=== PATIENT | male | born 1990 | race African-American/Black ===

== ENCOUNTER 2017-01-07 10:20 | Emergency (ER) | payer SELFPAY ==
[2017-01-07 10:24] VITALS: BP 143/73; BMI 28.3
--- NOTE | 2017-01-07 10:59 | DR.GENAD ---
HPI - PCP Primary Care Physician: none - Complaint/Symptoms Chief Complaint:: " Lymph nodes are swollen and ear is hurting on my left side for three days" - Source History Provided: Patient - Mode of Arrival Mode of Arrival: Ambulatory - Timing Onset of Chief Complaint: 01/05/17 PMH - PMH Past Medical History: No Past Medical History: Arthritis, Migraines Past Surgical History: No - Family History History of Family Medical Conditions: Yes Family Medical History: Diabetes Mellitus, Hypertension - Social History Does patient currently use any type of tobacco product: Yes Have you used tobacco products in the last 12 months: Yes Type of Tobacco Use: Cigarettes How many years tobacco product used: 10 Does any household member use tobacco: No Alcohol Use: None Do you use any recreational Drugs:: No Lives With: Family Lives Where: Home - infectious screening In the last 2 months have you had wt loss of >10#?: NO Have you had fever, night sweats or hemotysis?: No Have you traveled outside the country in the last 6 months?: No Isolation: Standard ROS - Review of Systems Constitutional: No Symptoms Reported Eyes: No Symptoms Reported ENTM: No Symptoms Reported Respiratoy: No Symptoms Reported Cardiovascular: No Symptoms Reported Gastrointestinal/Abdominal: No Symptoms Reported Genitourinary: No Symptoms Reported Neurological: No Symptoms Reported Musculoskeletal: No Symptoms Reported Integumentary: No Symptoms Reported Hematologic/Lymphatic: No Symptoms Reported Endocrine: No Symptoms Reported Psychiatric: No Symptoms Reported All Other Systems: Reviewed and Negative PE - Vital Signs Vitals: Temperature 98.0 F Pulse Rate 65 Respiratory Rate 18 Blood Pressure 143/73 O2 Sat by Pulse Oximetry 99 - General Limitations: No Limitations General Appearance: Alert, In No Apparent Distress - ENT ENT Exam: Normal Exam, Normal Oropharynx External Ear Exam: Normal External Inspection, Pain with Movement TM/Canal Exam: Left Erythema (TM yellow), Bilateral Normal Nose Exam: Normal Nose Exam Mouth Exam: Normal Inspection Throat Exam: Normal Inspection - Neck Neck Exam: Normal Inspection - Chest Chest Inspection: Normal Inspection - Respiratory Respiratory Exam: Normal Lung Sounds Bilat Respiratory Exam: Bilateral Clear to Auscultation - Cardiovascular Cardiovascular Exam: Regular Rate, Normal Rhythm - Abdominal Exam Abdominal Exam: Normal Inspection Abdominal Tenderness: negative: RUQ, RLQ, LUQ, LLQ, Epigastrium, Suprapubic, Diffuse, Mild, Moderate, Severe, Other - Extremities Extremities Exam: Normal Inspection - Back Back Exam: Normal Inspection - Neurologic Neurological Exam: Alert, Oriented X3 - Psychiatric Psychiatric Exam: Normal Affect - Skin Skin Exam: Warm, Dry, Intact Course - Reevaluation 1st: Unchanged ROR - Labs Reviewed Laboratory Results Reviewed?: Yes (strep negative) Laboratory: Streptococcus Screen Negative (NEGATIVE) 01/07/17 11:13 - Diagnosis Discharge Problem: Left otitis media Qualifiers: Otitis media type: suppurative Chronicity: acute Recurrence: not specified as recurrent Spontaneous tympanic membrane rupture: without spontaneous rupture Qualified Code(s): H66.002 - Acute suppurative otitis media without spontaneous rupture of ear drum, left ear - Discharge Plan Condition: Stable - Follow ups/Referrals Follow ups/Referrals: NFD,None [Primary Care Provider] - 3 days - Instructions
== END 2017-01-07 11:46 | disposition home or self-care (01) ==
LOC: ER 10:31
DX: H66.002 Acute suppurative otitis media without spontaneous rupture of ear drum, left ear (principal)
CPT/HCPCS: 87070; 87880; 99282

== ENCOUNTER 2017-07-02 12:38 | Emergency (ER) | payer SELFPAY ==
[2017-07-02 12:42] VITALS: BP 122/75; BMI 23.6
[2017-07-02] MEDS ORDERED: NS 1000 ML 1,000 ML IV ONE (13:25)
[2017-07-02] MEDS ORDERED: PHENERGAN INJ 25 MG IVP ONE (13:26)
--- NOTE | 2017-07-02 13:27 | DR.GENAD ---
HPI - PCP Primary Care Physician: NFD - Complaint/Symptoms Chief Complaint Doctors Comments: 27 y/o male complainig of nausea and vomitting + diarrhea. These symptoms have been ongoing x days. He describes BM as loose and he has been going several/numerous x per day. He states frequency is lessening since yesterday. On average, he has 4-5 emesis per day. He has associated abdominal cramps. He denies recent travel outside of this area or of consuming poorly prepare food items. He states however, multiple members of his household have or have had similar symptoms. He has a headach but no fever. Chief Complaint:: PATIENT C/O N/V AND DIARRHEA WITH HEADACHES X4 DAYS. PATIENT STATES "MY MOM AND FAMILY HAVE THE SAME THING." DENIES EATING ANY DIFFERENT FOOD LATELY. DENIES ABD PAIN Self Treatment fo Chief Complaint: OTC NAUSEA RELIEF MEDS - Nurses notes reviewed Nurses Notes Review: Yes - Source History Provided: Patient - Mode of Arrival Mode of Arrival: Ambulatory - Timing Onset of Chief Complaint: 06/29/17 - Duration How lon Duration: Days PMH - PMH Past Medical History: No Past Medical History: Arthritis, Migraines Past Surgical History: No - Family History History of Family Medical Conditions: Yes Family Medical History: Diabetes Mellitus, Hypertension - Social History Does patient currently use any type of tobacco product: Yes Have you used tobacco products in the last 12 months: Yes Type of Tobacco Use: Cigarettes Does any household member use tobacco: No Alcohol Use: None Do you use any recreational Drugs:: No Lives With: Family Lives Where: Home - infectious screening In the last 2 months have you had wt loss of >10#?: NO Have you had fever, night sweats or hemotysis?: No Have you traveled outside the country in the last 6 months?: No Isolation: Standard ROS - Review of Systems Constitutional: No Symptoms Reported Eyes: No Symptoms Reported ENTM: No Symptoms Reported Respiratoy: No Symptoms Reported Cardiovascular: No Symptoms Reported Gastrointestinal/Abdominal: Abdominal Pain, Diarrhea, Nausea, Vomiting Genitourinary: No Symptoms Reported Neurological: No Symptoms Reported Musculoskeletal: No Symptoms Reported Integumentary: No Symptoms Reported Hematologic/Lymphatic: No Symptoms Reported Endocrine: No Symptoms Reported Psychiatric: No Symptoms Reported All Other Systems: Reviewed and Negative PE - Vital Signs Vitals: Temperature 97.8 F Pulse Rate 83 Respiratory Rate 18 Blood Pressure 122/75 O2 Sat by Pulse Oximetry 97 - General Limitations: No Limitations General Appearance: Alert, In No Apparent Distress - Head Head Exam: Normal Inspection - Eyes Eye exam: Normal Appearance, PERRL, EOMI - ENT ENT Exam: Normal Exam - Neck Neck Exam: Normal Inspection, Full ROM, Trachea Midline - Chest Chest Inspection: Normal Inspection, Symmetric Chest Wall Rise - Respiratory Respiratory Exam: Normal Lung Sounds Bilat - Cardiovascular Cardiovascular Exam: Regular Rate, Normal Rhythm - Abdominal Exam Abdominal Exam: Normal Inspection, Normal Bowel Sounds, Soft - Extremities Extremities Exam: Normal Inspection, Full ROM - Back Back Exam: Normal Inspection - Neurologic Neurological Exam: Alert, Oriented X3, CN II-XII Intact - Psychiatric Psychiatric Exam: Normal Affect, Normal Mood - Skin Skin Exam: Warm, Dry, Intact, Normal Color Course - Reevaluation 1st: Improved - Education/Counseling Education/Counseling: Patient Educated On: Treatment, Diagnosis, Prognosis, Needs for Follow Up ROR - Labs Reviewed Result Diagrams: 07/02/17 13:38 07/02/17 13:38 Laboratory: WBC 5.1 X10^3/uL (3.6-10.0) 07/02/17 13:38 RBC 5.04 X10^6/uL (4.7-6.0) 07/02/17 13:38 Hgb 14.9 g/dL (13.5-18.0) 07/02/17 13:38 Hct 44.7 % (42.0-54.0) 07/02/17 13:38 MCV 88.8 fL (80.0-100.0) 07/02/17 13:38 MCH 29.6 pg (27.0-34.0) 07/02/17 13:38 MCHC 33.4 g/dL (33.0-35.0) 07/02/17 13:38 RDW 12.7 % (11.6-16.5) 07/02/17 13:38 Plt Count 262 X10^3/uL (150.0-450.0) 07/02/17 13:38 MPV 7.4 fL (7.4-11.0) 07/02/17 13:38 Neut % 51.5 % (42.0-75.0) 07/02/17 13:38 Lymph % 35.7 % (21.0-51.0) 07/02/17 13:38 [place] % 9.7 % (0.0-13.0) 07/02/17 13:38 Eos % 2.5 % (0.9-2.9) 07/02/17 13:38 Baso % 0.6 % (0.2-1.0) 07/02/17 13:38 Neut # 2.6 x10^3/uL (2.2-4.8) 07/02/17 13:38 Lymph # 1.8 X10^3/uL (1.3-2.9) 07/02/17 13:38 [place] # 0.5 x10^3/uL (0.3-0.8) 07/02/17 13:38 Eos # 0.1 x10^3/uL (0.0-0.2) 07/02/17 13:38 Baso # 0.0 X10^3/uL (0.0-0.1) 07/02/17 13:38 Absolute Nucleated RBC 0.0 /100WBC 07/02/17 13:38 Sodium 139 mmol/L (136-145) 07/02/17 13:38 Corrected Sodium TNP 07/02/17 13:38 Potassium 3.9 mmol/L (3.5-5.1) 07/02/17 13:38 Chloride 103 mmol/L (98-107) 07/02/17 13:38 Carbon Dioxide 31.0 mmol/L (21-32) 07/02/17 13:38 BUN 9 mg/dL (7-18) 07/02/17 13:38 Creatinine 0.75 mg/dL (0.70-1.30) 07/02/17 13:38 Est GFR (MDRD) Af Amer > 60 (>60) 07/02/17 13:38 Est GFR (MDRD) Non-Af > 60 (>60) 07/02/17 13:38 Glucose 87 mg/dL (65-99) 07/02/17 13:38 Calcium 8.9 mg/dL (8.5-10.1) 07/02/17 13:38 Corrected Calcium TNP 07/02/17 13:38 Total Bilirubin 0.40 mg/dL (0.2-1.0) 07/02/17 13:38 AST 23 Units/L (15-37) 07/02/17 13:38 ALT 26 Units/L (12-78) 07/02/17 13:38 Alkaline Phosphatase 48 Units/L (46-116) 07/02/17 13:38 Total Protein 7.4 g/dL (6.4-8.2) 07/02/17 13:38 Albumin 4.0 g/dL (3.4-5.0) 07/02/17 13:38 Globulin 3.4 g/dL (2.5-4.5) 07/02/17 13:38 Albumin/Globulin Ratio 1.2 Ratio (1.1-2.1) 07/02/17 13:38 - Diagnosis Discharge Problem: Gastroenteritis - Discharge Plan Disposition: HOME, SELF-CARE Condition: Stable - Follow ups/Referrals Follow ups/Referrals: NFD,None [Primary Care Provider] - 3 days - Instructions
[2017-07-02] MEDS ORDERED: NS 1000 ML 1,000 ML ONE (13:30)
[2017-07-02] MEDS ORDERED: PHENERGAN INJ 25 MG ONE (13:30)
[2017-07-02 13:58] LABS: BASOPHILS % (AUTO) 0.6 % (0.2-1.0); EOSINOPHILS # (AUTO) 0.1 x10^3/uL (0.0-0.2); EOSINOPHILS % (AUTO) 2.5 % (0.9-2.9); HEMATOCRIT 44.7 % (42.0-54.0); HEMOGLOBIN 14.9 g/dL (13.5-18.0); LYMPHOCYTES # (AUTO) 1.8 X10^3/uL (1.3-2.9); LYMPHOCYTES % (AUTO) 35.7 % (21.0-51.0); MEAN CORPUSCULAR HEMOGLOBIN 29.6 pg (27.0-34.0); MEAN CORPUSCULAR HGB CONC 33.4 g/dL (33.0-35.0); MEAN CORPUSCULAR VOLUME 88.8 fL (80.0-100.0); MEAN PLATELET VOLUME 7.4 fL (7.4-11.0); MONOCYTES # (AUTO) 0.5 x10^3/uL (0.3-0.8); MONOCYTES % (AUTO) 9.7 % (0.0-13.0); NEUTROPHILS # (AUTO) 2.6 x10^3/uL (2.2-4.8); NEUTROPHILS % (AUTO) 51.5 % (42.0-75.0); PLATELET COUNT 262 X10^3/uL (150.0-450.0); RED BLOOD COUNT 5.04 X10^6/uL (4.7-6.0); RED CELL DISTRIBUTION WIDTH 12.7 % (11.6-16.5); WHITE BLOOD COUNT 5.1 X10^3/uL (3.6-10.0)
--- NOTE | 2017-07-02 14:11 | RAD ---
Examination: Abdomen with PA chest History: Nausea and vomiting Findings: PA chest demonstrates normal heart size with clear lungs and pleural spaces. In the abdomen , supine and upright views demonstrate a solitary segment of slightly dilated small bowel in the left mid abdomen. There is no evidence of mass formation or urinary calcification. No free air is identif ied. Impression: No acute chest abnormality noted. Minimal left-sided intestinal ileus. No obstruction or perforation. Reported By:
[2017-07-02 14:32] LABS: ALANINE AMINOTRANSFERASE 26 Units/L (12-78); ALKALINE PHOSPHATASE 48 Units/L (46-116); ASPARTATE AMINO TRANSFERASE 23 Units/L (15-37); BLOOD UREA NITROGEN 9 mg/dL (7-18); CALCIUM 8.9 mg/dL (8.5-10.1); CHLORIDE 103 mmol/L (98-107); CREATININE 0.75 mg/dL (0.70-1.30); SODIUM 139 mmol/L (136-145); TOTAL PROTEIN 7.4 g/dL (6.4-8.2); eGFR BLACK RACES > 60 (>60); eGFR NON BLACK RACES > 60 (>60)
== END 2017-07-02 15:26 | disposition home or self-care (01) ==
LOC: ER 13:03
DX: K52.89 Other specified noninfective gastroenteritis and colitis (principal)
CPT/HCPCS: 36415; 74022; 80053; 85025; 96365; 96374; 99283; A4222; J2550

== ENCOUNTER 2017-07-28 13:11 | Emergency (ER) | payer SELFPAY ==
[2017-07-28 13:15] VITALS: BP 146/77; BMI 23.9
--- NOTE | 2017-07-28 15:10 | DR.GENAD ---
HPI - PCP Primary Care Physician: NFD - Complaint/Symptoms Chief Complaint:: PATIENT STATED THAT ON HIS RT. FOOT HAS BEEN GIVEN HIM MORE TROUBLE WITH BLISTERS AND BLEEDING FROM WALKING TO 2 DIFFERENT JOBS. HE STATED THAT THE LEFT ONE HAS BLISTERS BUT THEY HAVE NOT BUSTED OPEN. - Source History Provided: Patient - Mode of Arrival Mode of Arrival: Ambulatory - Timing Onset of Chief Complaint: 07/08/17 PMH - PMH Past Medical History: Yes Past Medical History: Arthritis, Migraines Past Surgical History: No - Family History History of Family Medical Conditions: Yes Family Medical History: Diabetes Mellitus, Hypertension - Social History Does patient currently use any type of tobacco product: Yes Have you used tobacco products in the last 12 months: Yes Type of Tobacco Use: Cigarettes Does any household member use tobacco: No Alcohol Use: None Do you use any recreational Drugs:: No Lives With: Family Lives Where: Home - infectious screening In the last 2 months have you had wt loss of >10#?: NO Have you had fever, night sweats or hemotysis?: No Have you traveled outside the country in the last 6 months?: No Isolation: Standard PE - Vital Signs Vitals: Temperature 98.3 F Pulse Rate 79 Respiratory Rate 20 Blood Pressure 146/77 O2 Sat by Pulse Oximetry 98 - Discharge Plan Condition: Stable Prescriptions: Cephalexin [KEFLEX CAP 500 MG *] 500 mg PO TID #30 cap Ibuprofen [MOTRIN TAB 600 MG *] 600 mg PO TID PRN #30 tab PRN Reason: Pain/Inflammation - Follow ups/Referrals Follow ups/Referrals: NFD,None [Primary Care Provider] - 3 days - Instructions Instructions: Plantar Fasciitis With Rehab-SportsMed Additional Instructions: RETURN TO ED IF WORSE. REFER TO PODIATIST OF YOUR CHOICE.
--- NOTE | 2017-07-28 15:51 | RAD ---
Examination: Left foot, three views History: Pain Findings: No definite fracture, dislocation, osteolytic process or arthropathy. The visualized soft t issues are normal. Impression: Within normal limits. Reported By:
--- NOTE | 2017-07-28 15:52 | RAD ---
Examination: Right foot, three views History: Walking pain Findings: There is no evidence for fracture, bone destruction, soft tissue calcification or arthritis . The visualized soft tissues are unremarkable. Impression: No abnormality identified. Reported By:
== END 2017-07-28 16:25 | disposition home or self-care (01) ==
LOC: ER 13:24
DX: M72.2 Plantar fascial fibromatosis (principal)
CPT/HCPCS: 73630; 99282

== ENCOUNTER 2017-11-26 09:03 | Emergency (ER) | payer SELFPAY ==
[2017-11-26 09:08] VITALS: BP 119/62; BMI 24.3
--- NOTE | 2017-11-26 09:36 | DR.EXTPAIN ---
HPI - Time seen Time seen: 09:35 - PCP Primary Care Physician: cullen - HPI Comment HPI Comment: PAIN GETTING WORSE. NOW WITH NAUSEA. NO FEVER.NO V/D. DENIES MELENA. PAIN SO SEVERE TODAY, HE CAME TO ED. - Complaint/Symptoms Chief Complaint Doctor Comments: EPIGASTRIC PAIN TIMES 4 WEEKS. Chief Complaint:: pt stated for 4 weeks he has had gas trapped in his chest. he stated he needed to get it seen about Self Treatment fo Chief Complaint: took anacid - Nurses notes reviewed Nurses Notes Review: Yes - Source History Provided: Patient - Mode of arrival Mode of Arrival: Ambulatory - Timing Onset of Chief Complaint: 10/29/17 - Context History of: None - Associated signs and symptoms Associated Signs and Symptoms: Abdominal Pain, Nausea PMH - PMH Past Medical History: No Past Medical History: Arthritis, Migraines Past Surgical History: No - Family History History of Family Medical Conditions: No Family Medical History: Diabetes Mellitus, Hypertension - Social History Does patient currently use any type of tobacco product: Yes Have you used tobacco products in the last 12 months: Yes Type of Tobacco Use: Cigarettes How many years tobacco product used: 10 Does any household member use tobacco: Yes Alcohol Use: None Do you use any recreational Drugs:: No Lives With: Family Lives Where: Home - infectious screening In the last 2 months have you had wt loss of >10#?: NO Have you had fever, night sweats or hemotysis?: No Have you traveled outside the country in the last 6 months?: No Isolation: Standard ROS - Review of Systems Constitutional: No Symptoms Reported Eyes: No Symptoms Reported ENTM: No Symptoms Reported Respiratoy: No Symptoms Reported Cardiovascular: No Symptoms Reported Gastrointestinal/Abdominal: Abdominal Pain, Nausea Neurological: No Symptoms Reported Musculoskeletal: No Symptoms Reported Integumentary: No Symptoms Reported Hematologic/Lymphatic: No Symptoms Reported Endocrine: No Symptoms Reported All Other Systems: Reviewed and Negative PE - Vital Signs Vitals: Temperature 98.9 F Pulse Rate 78 Respiratory Rate 16 Blood Pressure 119/62 O2 Sat by Pulse Oximetry 100 - General Limitations: No Limitations General Appearance: Alert - Head Head Exam: Normal Inspection - Eyes Eye exam: Normal Appearance - ENT ENT Exam: Normal External Ear Exam - Neck Neck Exam: Trachea Midline - Chest Chest Inspection: Symmetric Chest Wall Rise - Respiratory Respiratory Exam: Normal Lung Sounds Bilat Respiratory Exam: Bilateral Clear to Auscultation - Cardiovascular Cardiovascular Exam: Regular Rate, Normal Rhythm, Normal Heart Sounds - Abdominal Exam Abdominal Exam: Normal Bowel Sounds, Soft, Tenderness Abdominal Tenderness: Epigastrium - Extremities Extremities Exam: Normal Inspection - Lower Extremities Neurovascular/Tendon Exam: Normal Capillary Refill Gait Exam: Observed and Normal - Back Back Exam: Normal Inspection - Neurological Neurological Exam: Alert, Oriented X3 - Psychiatric Psychiatric Exam: Normal Affect, Normal Mood - Skin Skin Exam: Normal Color MDM - Differential Diagnosis Differential Diagnosis: Other (EPIGASTRIC PAIN, BOWEL OBST, PUD, HIATAL HERNIA) Course - Treatment Treatment: SEE ORDERS. - Education/Counseling Education/Counseling: Patient, Education Educated On: Diagnosis, Needs for Follow Up ROR - Labs Reviewed Laboratory Results Reviewed?: Yes Result Diagrams: 11/26/17 09:45 11/26/17 09:45 Laboratory: WBC 8.3 X10^3/uL (3.6-10.0) 11/26/17 09:45 RBC 4.67 X10^6/uL (4.7-6.0) L 11/26/17 09:45 Hgb 13.9 g/dL (13.5-18.0) 11/26/17 09:45 Hct 41.1 % (42.0-54.0) L 11/26/17 09:45 MCV 88.0 fL (80.0-100.0) 11/26/17 09:45 MCH 29.7 pg (27.0-34.0) 11/26/17 09:45 MCHC 33.7 g/dL (33.0-35.0) 11/26/17 09:45 RDW 12.4 % (11.6-16.5) 11/26/17 09:45 Plt Count 239 X10^3/uL (150.0-450.0) 11/26/17 09:45 MPV 6.9 fL (7.4-11.0) L 11/26/17 09:45 Neut % (Auto) 69.4 % (42.0-75.0) 11/26/17 09:45 Lymph % (Auto) 16.7 % (21.0-51.0) L 11/26/17 09:45 [place] % (Auto) 11.6 % (0.0-13.0) 11/26/17 09:45 Eos % (Auto) 1.5 % (0.9-2.9) 11/26/17 09:45 Baso % (Auto) 0.8 % (0.2-1.0) 11/26/17 09:45 Neut # (Auto) 5.7 x10^3/uL (2.2-4.8) H 11/26/17 09:45 Lymph # (Auto) 1.4 X10^3/uL (1.3-2.9) 11/26/17 09:45 [place] # (Auto) 1.0 x10^3/uL (0.3-0.8) H 11/26/17 09:45 Eos # (Auto) 0.1 x10^3/uL (0.0-0.2) 11/26/17 09:45 Baso # (Auto) 0.1 X10^3/uL (0.0-0.1) 11/26/17 09:45 Absolute Nucleated RBC 0.0 /100WBC 11/26/17 09:45 Sodium 139 mmol/L (136-145) 11/26/17 09:45 Corrected Sodium TNP 11/26/17 09:45 Potassium 4.2 mmol/L (3.5-5.1) 11/26/17 09:45 Chloride 104 mmol/L (98-107) 11/26/17 09:45 Carbon Dioxide 29.9 mmol/L (21-32) 11/26/17 09:45 BUN 8 mg/dL (7-18) 11/26/17 09:45 Creatinine 0.93 mg/dL (0.70-1.30) 11/26/17 09:45 Est GFR (MDRD) Af Amer > 60 (>60) 11/26/17 09:45 Est GFR (MDRD) Non-Af > 60 (>60) 11/26/17 09:45 Glucose 100 mg/dL (65-99) H 11/26/17 09:45 Calcium 8.5 mg/dL (8.5-10.1) 11/26/17 09:45 Corrected Calcium TNP 11/26/17 09:45 Total Bilirubin 0.40 mg/dL (0.2-1.0) 11/26/17 09:45 AST 20 Units/L (15-37) 11/26/17 09:45 ALT 23 Units/L (12-78) 11/26/17 09:45 Alkaline Phosphatase 51 Units/L (46-116) 11/26/17 09:45 Total Protein 7.1 g/dL (6.4-8.2) 11/26/17 09:45 Albumin 3.7 g/dL (3.4-5.0) 11/26/17 09:45 Globulin 3.4 g/dL (2.5-4.5) 11/26/17 09:45 Albumin/Globulin Ratio 1.1 Ratio (1.1-2.1) 11/26/17 09:45 Amylase 122 Units/L (25-115) H 11/26/17 09:45 Lipase 517 Units/L (73-393) H 11/26/17 09:45 Specimen Type Clean catch urine 11/26/17 10:12 Urine Color Yellow (YELLOW) 11/26/17 10:12 Urine Appearance Hazy (CLEAR) 11/26/17 10:12 Urine pH 7.0 (5.0 - 8.0) 11/26/17 10:12 Ur Specific [place] 1.005 (1.000-1.030) 11/26/17 10:12 Urine Protein Negative (NEGATIVE) 11/26/17 10:12 Urine Glucose (UA) Negative (NEGATIVE) 11/26/17 10:12 Urine Ketones Negative (NEGATIVE) 11/26/17 10:12 Urine Occult Blood Negative (NEGATIVE) 11/26/17 10:12 Urine Nitrite Negative (NEGATIVE) 11/26/17 10:12 Urine Bilirubin Negative (NEGATIVE) 11/26/17 10:12 Urine Urobilinogen Normal (NORMAL) 11/26/17 10:12 Ur Leukocyte Esterase Negative (NEGATIVE) 11/26/17 10:12 H. pylori IgG Antibody Positive (NEGATIVE) A 11/26/17 09:45 - XRAY XRAY Interpreted by: Radiologist XRAY Findings: SEE REPORT. - Diagnosis Discharge Problem: Helicobacter pylori ab+ Abdominal pain Qualifiers: Abdominal location: epigastric Qualified Code(s): R10.13 - Epigastric pain Acute pancreatitis Qualifiers: Pancreatitis type: unspecified pancreatitis type Acute pancreatitis complication: unspecified Qualified Code(s): K85.90 - Acute pancreatitis without necrosis or infection, unspecified - Discharge Plan Condition: Stable Prescriptions: Ketorolac Tromethamine [Toradol Tab] 10 mg PO Q8H PRN #12 tab PRN Reason: Pain Lansoprazole/Amoxiciln/Clarith [PrevPac 14-day pack] 1 dose PO BID #1 pkg - Follow ups/Referrals Follow ups/Referrals: NFD,None [Primary Care Provider] - 3 days - Instructions Instructions: Abdominal Pain, Adult, [id number], Helicobacter Pylori Antibodies Test Additional Instructions: RETURN TO ED IF WORSE.
[2017-11-26 09:58] LABS: BASOPHILS # (AUTO) 0.1 X10^3/uL (0.0-0.1); BASOPHILS % (AUTO) 0.8 % (0.2-1.0); EOSINOPHILS # (AUTO) 0.1 x10^3/uL (0.0-0.2); EOSINOPHILS % (AUTO) 1.5 % (0.9-2.9); HEMATOCRIT 41.1 % (42.0-54.0); HEMOGLOBIN 13.9 g/dL (13.5-18.0); LYMPHOCYTES # (AUTO) 1.4 X10^3/uL (1.3-2.9); LYMPHOCYTES % (AUTO) 16.7 % (21.0-51.0); MEAN CORPUSCULAR HEMOGLOBIN 29.7 pg (27.0-34.0); MEAN CORPUSCULAR HGB CONC 33.7 g/dL (33.0-35.0); MEAN PLATELET VOLUME 6.9 fL (7.4-11.0); MONOCYTES % (AUTO) 11.6 % (0.0-13.0); NEUTROPHILS # (AUTO) 5.7 x10^3/uL (2.2-4.8); NEUTROPHILS % (AUTO) 69.4 % (42.0-75.0); PLATELET COUNT 239 X10^3/uL (150.0-450.0); RED BLOOD COUNT 4.67 X10^6/uL (4.7-6.0); RED CELL DISTRIBUTION WIDTH 12.4 % (11.6-16.5); WHITE BLOOD COUNT 8.3 X10^3/uL (3.6-10.0)
[2017-11-26 10:10] LABS: ALANINE AMINOTRANSFERASE 23 Units/L (12-78); ALBUMIN 3.7 g/dL (3.4-5.0); ALKALINE PHOSPHATASE 51 Units/L (46-116); AMYLASE 122 Units/L (25-115); ASPARTATE AMINO TRANSFERASE 20 Units/L (15-37); BLOOD UREA NITROGEN 8 mg/dL (7-18); CALCIUM 8.5 mg/dL (8.5-10.1); CARBON DIOXIDE 29.9 mmol/L (21-32); CHLORIDE 104 mmol/L (98-107); CREATININE 0.93 mg/dL (0.70-1.30); LIPASE 517 Units/L (73-393); SODIUM 139 mmol/L (136-145); TOTAL PROTEIN 7.1 g/dL (6.4-8.2); eGFR BLACK RACES > 60 (>60); eGFR NON BLACK RACES > 60 (>60)
[2017-11-26 10:20] LABS: BILIRUBIN,URINE NEGATIVE (NEGATIVE); BLOOD/HEMOGLOBIN,URINE NEGATIVE (NEGATIVE); GLUCOSE, URINE NEGATIVE (NEGATIVE); KETONES,URINE NEGATIVE (NEGATIVE); LEUKOCYTE ESTERASE ,URINE NEGATIVE (NEGATIVE); NITRITES,URINE NEGATIVE (NEGATIVE); PROTEIN,URINE NEGATIVE (NEGATIVE); UROBILINOGEN,URINE NORMAL (NORMAL)
[2017-11-26 10:23] LABS: APPEARANCE,URINE HAZY (CLEAR); COLOR,URINE YELLOW (YELLOW)
--- NOTE | 2017-11-26 10:57 | RAD ---
HISTORY: Chest and abdominal pain. Acute abdominal series. Findings: The trachea is midline. The cardiac silhouette is unremarkable. The lungs are clear without focal i nfiltrate or effusion. The bony thorax is unremarkable. Flat plate and upright evaluation of the abdomen demonstrates a nonspecific and nonobstructive bowel gas pattern. No free peritoneal air is seen. No pathological soft tissue abdominal mass effect or foc al calcification can be observed. The bony structures are grossly intact. IMPRESSION: 1. No acute cardiopulmonary disease. 2. No evidence for acute abdominal pathology. 3. Moderate quantity of colonic stool observed. Reported By:
== END 2017-11-26 11:14 | disposition home or self-care (01) ==
LOC: ER 09:13
DX: R10.13 Epigastric pain (principal); K85.90 Acute pancreatitis without necrosis or infection, unspecified; B96.81 Helicobacter pylori [H. pylori] as the cause of diseases classified elsewhere
CPT/HCPCS: 36415; 74022; 80053; 81003; 82150; 83690; 85025; 86677; 99282

== ENCOUNTER 2017-12-02 13:14 | Emergency (ER) | payer SELFPAY ==
[2017-12-02 13:22] VITALS: BP 126/69; BMI 24.3
--- NOTE | 2017-12-02 15:23 | DR.CP ---
HPI - Time Seen Time seen: 15:10 - PCP Primary Care Physician: KHRIS - HPI Comment HPI Comment: HISTORY BELOW. PATIENT ALSO HAVING BACK PAIN MID AND LOWER BACK. NO DYSURIA. - Complaint Chief Complaint Doctor Comments: CHEST PAIN TIMES ONE MONTH. 11/26/2017 PATIENT WAS EVALUATED GOR EPIGASTRIC PAIN AT THIS FACILITY AND DIAGNOSE WITH PANCREASTITIS AND POSITIVE H PYLORI TEST. CT NON CONTRAST OF ABD/PELVIS DIS NOT REPORT ACUTE FINDINGS. NOW HE STARTED HAVING MID STERNAL PAIN RADIATING TO THE EPIGASTRIC AREA. NO FEVER. Chief Complaint:: MIDSTERNAL CHESTPAIN FOR APPROX 1 MONTH - Reviewed Nurses Notes Review: Yes - Source History Provided: Patient - Mode of Arrival Mode of Arrival: Ambulatory - Timing Onset of Chief Complaint: 11/02/17 Came on: Suddenly - Duration Duration: Constant Duration: Days - Location Chest Pain Radiation Location: Abdomen - Context Onset: At rest Cardiac Risk Factors: None PE Risk Factors: None History of: None Prehospital Care: None - Quality Quality: Sharp - Severity Severity: Moderate - Modifying Factors Worsens: Nothing Impoves: Nothing - Associated Signs and Symptoms Associated Signs and Symptoms: Other (CHEST PAIN) PMH - PMH Past Medical History: Yes Past Medical History: Angina Past Surgical History: No - Family History History of Family Medical Conditions: No Family Medical History: Diabetes Mellitus, Hypertension - Social History Does patient currently use any type of tobacco product: Yes Have you used tobacco products in the last 12 months: Yes Type of Tobacco Use: Cigarettes How many years tobacco product used: 10 Does any household member use tobacco: Yes Alcohol Use: None Do you use any recreational Drugs:: No Lives With: Family Lives Where: Home - infectious screening In the last 2 months have you had wt loss of >10#?: NO Have you had fever, night sweats or hemotysis?: No Have you traveled outside the country in the last 6 months?: No Isolation: Standard ROS - Review of Systems Constitutional: No Symptoms Reported Eyes: No Symptoms Reported ENTM: No Symptoms Reported Respiratoy: No Symptoms Reported Cardiovascular: Chest Pain Gastrointestinal/Abdominal: Abdominal Pain, Nausea Neurological: No Symptoms Reported Musculoskeletal: No Symptoms Reported Integumentary: No Symptoms Reported Hematologic/Lymphatic: No Symptoms Reported Endocrine: No Symptoms Reported All Other Systems: Reviewed and Negative PE - Vitals Vitals: Temperature 98.2 F Pulse Rate 60 Respiratory Rate 20 Blood Pressure 126/69 O2 Sat by Pulse Oximetry 98 - General Limitations: No Limitations General Appearance: Alert - Head Head Exam: Normal Inspection - Eyes Eye exam: Normal Appearance - ENT ENT Exam: Normal External Ear Exam - Chest Chest Inspection: Symmetric Chest Wall Rise - Respiratory Respiratory Exam: Normal Lung Sounds Bilat Respiratory Exam: Bilateral Clear to Auscultation - Cardiovascular Cardiovascular Exam: Regular Rate, Normal Rhythm, Normal Heart Sounds Pulse: Normal, Radial, Femoral Edema: Normal - Abdominal Exam Abdominal Exam: Normal Bowel Sounds, Soft, Tenderness - Extremities Extremities Exam: Normal Inspection - Back Back Exam: Normal Inspection - Neurologic Neurological Exam: Alert, Oriented X3 - Psychiatric Psychiatric Exam: Normal Affect, Normal Mood - Skin Skin Exam: Normal Color MDM - Differential Diagnosis Differential Diagnosis: Chest Wall Pain, Cholelithasis, Costochondritis, Esophageal Reflux/Spasm, Gastritis, Pancreatitis Course - Treatment Treatment: SEE ORDERS. - Education/Counseling Education/Counseling: Patient, Family, Education Educated On: Diagnosis, Needs for Follow Up ROR - Labs Reviewed Laboratory Results Reviewed?: Yes Result Diagrams: 12/02/17 15:26 12/02/17 15:26 Laboratory: WBC 7.6 X10^3/uL (3.6-10.0) 12/02/17 15:26 RBC 4.62 X10^6/uL (4.7-6.0) L 12/02/17 15:26 Hgb 13.7 g/dL (13.5-18.0) 12/02/17 15:26 Hct 40.6 % (42.0-54.0) L 12/02/17 15:26 MCV 87.9 fL (80.0-100.0) 12/02/17 15:26 MCH 29.7 pg (27.0-34.0) 12/02/17 15:26 MCHC 33.8 g/dL (33.0-35.0) 12/02/17 15:26 RDW 12.4 % (11.6-16.5) 12/02/17 15:26 Plt Count 302 X10^3/uL (150.0-450.0) 12/02/17 15:26 MPV 6.6 fL (7.4-11.0) L 12/02/17 15:26 Neut % (Auto) 66.8 % (42.0-75.0) 12/02/17 15:26 Lymph % (Auto) 22.7 % (21.0-51.0) 12/02/17 15:26 [place] % (Auto) 8.5 % (0.0-13.0) 12/02/17 15:26 Eos % (Auto) 1.1 % (0.9-2.9) 12/02/17 15:26 Baso % (Auto) 0.9 % (0.2-1.0) 12/02/17 15:26 Neut # (Auto) 5.1 x10^3/uL (2.2-4.8) H 12/02/17 15:26 Lymph # (Auto) 1.7 X10^3/uL (1.3-2.9) 12/02/17 15: [place] # (Auto) 0.6 x10^3/uL (0.3-0.8) 12/02/17 15:26 Eos # (Auto) 0.1 x10^3/uL (0.0-0.2) 12/02/17 15: Baso # (Auto) 0.1 X10^3/uL (0.0-0.1) 12/02/17 15: Absolute Nucleated RBC 0.0 /100WBC 12/02/17 15:26 Sodium 138 mmol/L (136-145) 12/02/17 15:26 Corrected Sodium TNP 12/02/17 15:26 Potassium 3.8 mmol/L (3.5-5.1) 12/02/17 15:26 Chloride 101 mmol/L (98-107) 12/02/17 15:26 Carbon Dioxide 28.0 mmol/L (21-32) 12/02/17 15:26 BUN 8 mg/dL (7-18) 12/02/17 15:26 Creatinine 0.90 mg/dL (0.70-1.30) 12/02/17 15:26 Est GFR (MDRD) Af Amer > 60 (>60) 12/02/17 15:26 Est GFR (MDRD) Non-Af > 60 (>60) 12/02/17 15:26 Glucose 96 mg/dL (65-99) 12/02/17 15:26 Calcium 8.9 mg/dL (8.5-10.1) 12/02/17 15:26 Corrected Calcium TNP 12/02/17 15:26 Total Bilirubin 0.60 mg/dL (0.2-1.0) 12/02/17 15:26 AST 16 Units/L (15-37) 12/02/17 15:26 ALT 26 Units/L (12-78) 12/02/17 15:26 Alkaline Phosphatase 56 Units/L (46-116) 12/02/17 15:26 Creatine Kinase 216 Units/L (39-308) 12/02/17 15:26 CK-MB (CK-2) 1.5 ng/mL (0-4.0) 12/02/17 15:26 CK/CKMB % Calc 0.7 % (<4) 12/02/17 15:26 Troponin I < 0.02 ng/mL (0-1.5) 12/02/17 15:26 Total Protein 7.7 g/dL (6.4-8.2) 12/02/17 15:26 Albumin 3.9 g/dL (3.4-5.0) 12/02/17 15:26 Globulin 3.8 g/dL (2.5-4.5) 12/02/17 15:26 Albumin/Globulin Ratio 1.0 Ratio (1.1-2.1) L 12/02/17 15:26 - XRAY XRAY Interpreted by: Radiologist XRAY Findings: REPORT DISCUSS WITH PATIENT. - EKG Rhythm: NSR (EKG NOTED.) - Diagnosis Discharge Problem: Helicobacter pylori ab+ Chest pain Qualifiers: Chest pain type: unspecified Qualified Code(s): R07.9 - Chest pain, unspecified Abdominal pain Qualifiers: Abdominal location: upper abdomen, unspecified Qualified Code(s): R10.10 - Upper abdominal pain, unspecified Back pain Qualifiers: Back pain location: low back pain Chronicity: acute Back pain laterality: bilateral Sciatica presence: without sciatica Qualified Code(s): M54.5 - Low back pain - Discharge Plan Disposition: 01 HOME, SELF-CARE Condition: Stable Prescriptions: Acetaminophen with Codeine [Tylenol/Codeine #3 300-30 mg] 1 tab PO Q6H PRN #15 tab PRN Reason: Pain - Follow ups/Referrals Follow ups/Referrals: NFD,None [Primary Care Provider] - 3 days - Instructions Instructions: Abdominal Pain, Adult, [id number], Nonspecific Chest Pain, Easy -to-Read, Back Pain, Adult, [id number] Additional Instructions: RETURN TO ED IF WORSE.
[2017-12-02 15:37] LABS: BASOPHILS # (AUTO) 0.1 X10^3/uL (0.0-0.1); BASOPHILS % (AUTO) 0.9 % (0.2-1.0); EOSINOPHILS # (AUTO) 0.1 x10^3/uL (0.0-0.2); EOSINOPHILS % (AUTO) 1.1 % (0.9-2.9); HEMATOCRIT 40.6 % (42.0-54.0); HEMOGLOBIN 13.7 g/dL (13.5-18.0); LYMPHOCYTES # (AUTO) 1.7 X10^3/uL (1.3-2.9); LYMPHOCYTES % (AUTO) 22.7 % (21.0-51.0); MEAN CORPUSCULAR HEMOGLOBIN 29.7 pg (27.0-34.0); MEAN CORPUSCULAR HGB CONC 33.8 g/dL (33.0-35.0); MEAN CORPUSCULAR VOLUME 87.9 fL (80.0-100.0); MEAN PLATELET VOLUME 6.6 fL (7.4-11.0); MONOCYTES # (AUTO) 0.6 x10^3/uL (0.3-0.8); MONOCYTES % (AUTO) 8.5 % (0.0-13.0); NEUTROPHILS # (AUTO) 5.1 x10^3/uL (2.2-4.8); NEUTROPHILS % (AUTO) 66.8 % (42.0-75.0); PLATELET COUNT 302 X10^3/uL (150.0-450.0); RED BLOOD COUNT 4.62 X10^6/uL (4.7-6.0); RED CELL DISTRIBUTION WIDTH 12.4 % (11.6-16.5); WHITE BLOOD COUNT 7.6 X10^3/uL (3.6-10.0)
[2017-12-02 15:54] LABS: ALANINE AMINOTRANSFERASE 26 Units/L (12-78); ALBUMIN 3.9 g/dL (3.4-5.0); ALKALINE PHOSPHATASE 56 Units/L (46-116); ASPARTATE AMINO TRANSFERASE 16 Units/L (15-37); BLOOD UREA NITROGEN 8 mg/dL (7-18); CALCIUM 8.9 mg/dL (8.5-10.1); CHLORIDE 101 mmol/L (98-107); CKMB % 0.7 % (<4); CREATINE KINASE 216 Units/L (39-308); CREATINE KINASE MB 1.5 ng/mL (0-4.0); SODIUM 138 mmol/L (136-145); TOTAL PROTEIN 7.7 g/dL (6.4-8.2); TROPONIN I < 0.02 ng/mL (0-1.5); eGFR BLACK RACES > 60 (>60); eGFR NON BLACK RACES > 60 (>60)
--- NOTE | 2017-12-02 16:05 | CT ---
HISTORY: Abdominal and back pain, worse on the right side Study: CT abdomen and pelvis without contrast Comparison: None Technique: Multiple axial images of the abdomen and pelvis were obtained without IV contrast. Dose reduction t echniques including Automated Exposure Control (AEC) and adjustment of mA and kV were utilized. Findings: Please note evaluation is limited without use of IV contrast. The visualized lung bases are clear. The liver, spleen, pancreas, kidneys, and adrenal glands are un remarkable in their unenhanced CT appearance. The gallbladder is normal. No renal calculi or obstruct john uropathy identified. The visualized ureters are normal. No free intraperitoneal air. No evidence of intestinal obstruction or inflammation. The midportion of the appendix measures up to 7 mm in diameter which is top normal. No surrounding inflammatory change s are seen. No free fluid is identified. The soft tissues and osseous structures are unremarkable. Limited evaluation of vascular structures d ue to lack of contrast. No pathologically enlarged lymph nodes are identified. Normal urinary bladder . IMPRESSION: 1.Negative noncontrast CT of the abdomen and pelvis. Reported By:
== END 2017-12-02 16:44 | disposition home or self-care (01) ==
LOC: ER 13:31
DX: R07.89 Other chest pain (principal); R10.84 Generalized abdominal pain; M54.5 Low back pain; B96.81 Helicobacter pylori [H. pylori] as the cause of diseases classified elsewhere
CPT/HCPCS: 36415; 74176; 80053; 82550; 82553; 84484; 85025; 93005; 93010; 99283